=== PATIENT | female | born 1950 | race Caucasian/White ===

== ENCOUNTER 2016-10-09 16:59 | Emergency (ER) | payer BC ==
--- NOTE | 2016-10-09 17:27 | ED.PDOC ---
History of Present Illness - General Chief Complaint: ENT Problem Stated Complaint: fever, cough, sorethroat Time Seen by Provider: 10/09/16 17:02 Source: patient Exam Limitations: no limitations - History of Present Illness Initial Comments: Patient presents with cough, ST, congestion for 5 days. Insidious onset. Cough is productive of green sputum. No hemoptysis. Measured her temp at home yesterday at 100.8. No dyspnea. 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 No other complaints. Timing/Duration: other - 5 days Severity: moderate Improving Factors: nothing Worsening Factors: nothing Associated Symptoms: cough Allergies/Adverse Reactions: Allergies Amitriptyline [From Elavil] Allergy (Verified 10/09/16 17:18) Cyclobenzaprine [From Flexeril] Allergy (Verified 10/09/16 17:18) Simvastatin Allergy (Verified 10/09/16 17:18) Home Medications: Ambulatory Orders Amoxicillin & Pot Clavulanate [Augmentin] 1 tab PO BID #20 tab 10/09/16 Review of Systems - Review of Systems Constitutional: States: see HPI EENTM: States: see HPI Respiratory: States: see HPI Cardiology: States: no symptoms reported Gastrointestinal/Abdominal: States: no symptoms reported Genitourinary: States: no symptoms reported Musculoskeletal: States: no symptoms reported Skin: States: no symptoms reported Neurological: States: no symptoms reported Endocrine: States: no symptoms reported Hematologic/Lymphatic: States: no symptoms reported Past Medical History (General) - Patient Medical History Surgical History: cholecystectomy - Vaccination History Hx Tetanus, Diphtheria Vaccination: No Hx Influenza Vaccination: No Hx Pneumococcal Vaccination: No - Social History Hx Tobacco Use: No Hx Alcohol Use: No Hx Substance Use: No Hx Substance Use Treatment: No Hx Depression: No - Activities of Daily Living Hospice Agency (if applicable):: None - Female History Patient is a Female of Child Bearing Age (10 -59 yrs old): No Patient : No Family Medical History - Family History Mother Family History: Unknown Physical Exam - Physical Exam General Appearance: Alert Eye Exam: bilateral normal Ears, Nose, Throat: normal ENT inspection Neck: non-tender, full range of motion, supple Respiratory: lungs clear Cardiovascular/Chest: normal peripheral pulses, regular rate, rhythm Gastrointestinal/Abdominal: normal bowel sounds, non tender, soft Skin Exam: normal color Departure - Departure Clinical Impression: Acute bronchitis Disposition: Discharge to Home or Self Care Condition: Good Departure Forms: ED Discharge - Pt. Copy, Patient Portal Self Enrollment Diet: resume usual diet Activity: increase activity as tolerated Prescriptions: Amoxicillin & Pot Clavulanate [Augmentin] 1 tab PO BID #20 tab Home Medications: Ambulatory Orders Amoxicillin & Pot Clavulanate [Augmentin] 1 tab PO BID #20 tab 10/09/16
[2016-10-09 17:47] VITALS: BP 125/66; TEMP 98.9; O2SAT 95
== END 2016-10-09 17:48 | disposition home or self-care (01) ==
LOC: ER 16:59
DX: J20.9 Acute bronchitis, unspecified (principal); Z88.8 Allergy status to other drugs, medicaments and biological substances